=== PATIENT | male | born 1985 | race Caucasian/White ===

== ENCOUNTER 2016-05-15 14:45 | Emergency (ER) | payer OTHER ==
[~2016-05-15] VITALS: Ht 185.4 cm; Wt 68.8 kg
[~2016-05-15 14:45] MED LIST: CLEOCIN300 MG PO; IBUPROFEN200 M1 PO; NAPROSYN500 MG PO; NORCO 5/3251 TABLET PO; PERIDEX1 ML MM
[2016-05-15 15:42] LABS: HEMATOCRIT 39.3 % (38.0-50.0); MCH 30.9 PG (29.0-34.0); MCHC 32.8 G/DL (30.0-36.0); MCV 94.2 FL (86-99); MEAN PLAT.VOLUME 9.3 uM^3 (9.0-12.4); PLATELET COUNT 233 K/uL (156-360); RBC DIS.WIDTH-CV 13.6 % (11.8-14.6); RBC DIS.WIDTH-SD 47.2 % (39-53); RED BLOOD COUNT 4.17 M/uL (4.00-5.50); WHITE BLOOD COUNT 3.8 K/uL (4.1-10.2)
[2016-05-15 15:52] LABS: CHLORIDE 104 mEq/L (99-109); POTASSIUM 4.4 mEq/L (3.7-5.4); SODIUM 139 mEq/L (136-147)
[2016-05-15 15:55] LABS: GLUCOSE 116 mg/dL (70-99)
[2016-05-15 15:56] LABS: ANION GAP 13 MEQ/L (2-14); TOTAL BILIRUBIN 0.9 mg/dL (0.0-1.0)
[2016-05-15 15:58] LABS: ALKALINE PHOSPHATASE 59 IU/L (3-129); GFR ESTIMATE (CALCULATED) > 59 mL/min/
[2016-05-15 15:59] LABS: UREA NITROGEN (BUN) 9 mg/dL (9-23)
[2016-05-15 16:02] LABS: LIPASE 24 U/L (1.0-51.0)
[2016-05-15] MEDS ORDERED: FLAGYL500 MG PO (17:45)
[2016-05-15] MEDS ORDERED: BENTYL10 MG PO (17:45)
[2016-05-15] MEDS ORDERED: ZOFRAN ODT4 MG PO (17:45)
[2016-05-15] MEDS ORDERED: CIPRO500 MG PO (17:45)
[2016-05-15 17:46] LABS: ADD MIUA? NO; BILIRUBIN NEGATIVE; BLOOD NEGATIVE; COLOR STRAW ((YELLOW)); GLUCOSE (STRIP) NEGATIVE; KETONES 5; LEUKOCYTES NEGATIVE; NITRITE NEGATIVE; PROTEIN (STRIP) NEGATIVE; SPECIFIC GRAVITY 1.043 (1.000-1.030); UCUL ADDED? NO; UROBILINOGEN 0.2 MG/DL (0.2-1.0)
[2016-05-15 18:47] VITALS: BP 137/95
== END 2016-05-15 18:49 | disposition home or self-care (01) ==
LOC: EME 14:45
DX: K52.9 Noninfective gastroenteritis and colitis, unspecified (principal); F17.200 Nicotine dependence, unspecified, uncomplicated
CPT/HCPCS: 74177; 80053; 81003; 83690; 85027; 99281; 99285; J1885; J2405; J7030